=== PATIENT | female | born 1950 | race Caucasian/White ===

== ENCOUNTER 2017-05-02 06:20 | Day surgery (SDC) | payer BC, OTHER ==
[2017-04-29 08:58] VITALS: BMI 23.1
--- NOTE | 2017-05-02 07:15 | HP ---
Admitting History and Physical - Admission History of Present Illness: patient is a 66 y/o female with a past medical history of bipolar disorder, ESRD (HD, Tuesday, , Tuesday), hypothyroidism and hypertension. Patient presents for ECT, she has received 16 ECT treatments in the past at [facility]. Patient was recently discharged from [facility] on after a 2 month hospitalization for depression and renal failure. Patient had a left av fistula placed during hospitalization with emergent dialysis. She reports ongoing feelings of depression. Patient denies any suicidal or homicidal ideation, visual or auditory hallucinations. She reports compliance with prescribed medications. History Source: Patient Limitations to Obtaining History: No Limitations - Past Medical History Cardiovascular: Yes: HTN Renal/: Yes: Renal Failure, Hemodialysis Endocrine: Yes: Hyperthyroidism - Advance Directives Advance Directives: Yes: Health Care Proxy - Smoking History Smoking history: Never smoked Have you smoked in the past 12 months: No - Alcohol/Substance Use Hx Alcohol Use: No History of Substance Use: reports: None - Social History Usual Living Arrangement: Yes: Alone ADL: Independent History of Recent Travel: No Home Medications - Allergies Allergies/Adverse Reactions: Allergies Allergy/AdvReac Type Severity Reaction Status Date / Time No Known Drug Allergies Allergy Verified 04/29/17 08:24 - Home Medications Home Medications: Ambulatory Orders Aripiprazole [Abilify -] 2 mg PO HS 04/29/17 Docusate Sodium [Colace -] 100 mg PO BID 04/29/17 Lamotrigine [Lamictal] 100 mg PO HS 04/29/17 Levothyroxine [Synthroid -] 50 mcg PO DAILY 04/29/17 Lisinopril 10 mg PO DAILY 04/29/17 Metoprolol Tartrate 25 mg PO BID 04/29/17 Sevelamer HCl [Renagel] 400 mg PO TID 04/29/17 Verapamil HCl 120 mg PO Q8H 04/29/17 Family Disease History - Family Disease History Family Disease History: Other: Father (cardiac arrest ) Review of Systems - Review of Systems Constitutional: reports: No Symptoms Eyes: reports: No Symptoms HENT: reports: No Symptoms Neck: reports: No Symptoms Cardiovascular: reports: No Symptoms Respiratory: reports: No Symptoms Gastrointestinal: reports: No Symptoms Genitourinary: reports: No Symptoms Musculoskeletal: reports: No Symptoms Integumentary: reports: No Symptoms Neurological: reports: No Symptoms Endocrine: reports: No Symptoms Hematology/Lymphatic: reports: No Symptoms Psychiatric: reports: Depression Physical Examination Constitutional: Yes: Well Nourished, No Distress, Calm Eyes: Yes: WNL, Conjunctiva Clear, EOM Intact HENT: Yes: WNL, Atraumatic, Normocephalic Neck: Yes: WNL, Supple, Trachea Midline Cardiovascular: Yes: WNL, Regular Rate and Rhythm, S1, S2, Other (right sc shiley, no erythema no induration noted) Respiratory: Yes: WNL, Regular, CTA Bilaterally Gastrointestinal: Yes: WNL, Normal Bowel Sounds, Soft ...Rectal Exam: Yes: Deferred Renal/: Yes: WNL Musculoskeletal: Yes: WNL Extremities: Yes: Other (left av fistula + thrill + bruit) Edema: No Peripheral Pulses WNL: Yes Peripheral Pulses: Left Radial: 4+, Right Radial: 4+, Left Doralis Pedis: 3+, Right Dorsalis Pedis: 3+, Left Femoral: 3+, Right Femoral: 2+ Integumentary: Yes: WNL Neurological: Yes: WNL, Alert, Oriented ...Motor Strength: WNL Psychiatric: Yes: WNL, Alert, Oriented Labs: CBC, BMP 05/02/17 07:00 Imaging - Results EKG: Image Reviewed, Other (nsr no ischemic changes) Problem List - Problems (1) Bipolar 1 disorder Code(s): F31.9 - BIPOLAR DISORDER, UNSPECIFIED (2) ESRD (end stage renal disease) on dialysis Code(s): N18.6 - END STAGE RENAL DISEASE Z99.2 - DEPENDENCE ON RENAL DIALYSIS (3) Hypertension Code(s): I10 - ESSENTIAL (PRIMARY) HYPERTENSION (4) Hypothyroidism Code(s): E03.9 - HYPOTHYROIDISM, UNSPECIFIED Assessment/Plan pt is a 66 y/o female that presents for ect, she has received ect in the past and denies any adverse reaction to anesthesia. pt appears euvolemic on exam, no signs of fluid overload is noted. labs and ekg reviewed pt is low risk for procedure. informed consent, risks/benefits to be obtained by Dr Foreman
[2017-05-02 07:25] LABS: ALBUMIN 3.5 g/dl (3.5-5.0); ALK PHOS 136 U/L (32-92); ANION GAP 9 (8-16); CALCIUM 9.1 mg/dl (8.4-10.2); CO2 23 mmol/L (22-28); CREATININE 6.7 mg/dl (0.6-1.3); GLUCOSE,RANDOM 80 mg/dl (74-106); SGOT/AST 19 U/L (10-42); SGPT/ALT 16 U/L (10-40)
[2017-05-02 07:38] LABS: BILIRUBIN,TOTAL 0.4 mg/dl (0.2-1.0)
[2017-05-02 10:57] VITALS: PULSE 60
[2017-05-02 10:59] VITALS: BP 140/70; TEMP 97.8
== END 2017-05-02 10:40 | disposition home or self-care (01) ==
LOC: FECT 06:20
PROVIDERS: ATTEND Psychiatry & Neurology Psychiatry
PROC: GZB4ZZZ Other Electroconvulsive Therapy (ICD-10-PCS; principal; 2017-05-02 07:15)
DX: F33.2 Major depressive disorder, recurrent severe without psychotic features (principal)
CPT/HCPCS: 36415; 80053; 90870; 94760

== ENCOUNTER 2017-05-11 05:41 | Day surgery (SDC) | payer BC, OTHER ==
[2017-05-04 12:02] VITALS: BMI 23.1
[2017-05-11 06:55] VITALS: TEMP 98
[2017-05-11 09:56] VITALS: BP 166/66; PULSE 61
== END 2017-05-11 09:50 | disposition home or self-care (01) ==
LOC: FECT 05:41
PROVIDERS: ATTEND Psychiatry & Neurology Psychiatry
PROC: GZB4ZZZ Other Electroconvulsive Therapy (ICD-10-PCS; principal; 2017-05-11 07:45)
DX: F33.2 Major depressive disorder, recurrent severe without psychotic features (principal)
CPT/HCPCS: 36415; 84132; 90870; 94760

== ENCOUNTER 2017-05-18 05:42 | Day surgery (SDC) | payer BC, OTHER ==
[2017-05-12 10:03] VITALS: BMI 23.1
[2017-05-18] MEDS ORDERED: ONDANSETRON 4 MG/2 ML VIAL IVPUSH PRN (08:57)
[2017-05-18] MEDS ORDERED: LACTATED RINGERS SOLUTION 1,000 ML IV SCH (09:00)
[2017-05-18 09:34] VITALS: BP 158/54; PULSE 64; TEMP 98.2
== END 2017-05-18 09:36 | disposition home or self-care (01) ==
LOC: FECT 05:42
PROVIDERS: ATTEND Psychiatry & Neurology Psychiatry
PROC: GZB4ZZZ Other Electroconvulsive Therapy (ICD-10-PCS; principal; 2017-05-18 07:45)
DX: F33.2 Major depressive disorder, recurrent severe without psychotic features (principal)
CPT/HCPCS: 36415; 84132; 90870; 94760

== ENCOUNTER 2017-05-25 05:47 | Day surgery (SDC) | payer OTHER ==
[2017-05-25] MEDS ORDERED: ONDANSETRON 4 MG/2 ML VIAL IVPUSH PRN (07:45)
[2017-05-25 10:08] VITALS: PULSE 64
[2017-05-25 10:10] VITALS: BP 134/66; TEMP 98
== END 2017-05-25 10:12 | disposition home or self-care (01) ==
LOC: FECT 05:47
PROVIDERS: ATTEND Psychiatry & Neurology Psychiatry
PROC: GZB4ZZZ Other Electroconvulsive Therapy (ICD-10-PCS; principal; 2017-05-25 08:00)
DX: F33.2 Major depressive disorder, recurrent severe without psychotic features (principal)
CPT/HCPCS: 36415; 84132; 90870; 94760

== ENCOUNTER 2017-06-01 05:36 | Day surgery (SDC) | payer OTHER ==
[2017-05-31 13:58] VITALS: BMI 23.1
--- NOTE | 2017-06-01 07:15 | HP ---
Admitting History and Physical - Admission History of Present Illness: patient is a 66 y/o female with a past medical history of ESRD (tuesday, Tuesday, Tuesday), hypertension, hypothyroidism, and bipolar disorder. Patient presents for ect her last ect was 05/25/17. Patient reports no significant relief of depression since starting ECT. She denies any recent hospitalizations or illnesses. She reports her abilify was increased to 3mg and reports no adverse reaction to medication change. Her last hemodialysis was yesterday with no adverse reaction. She denies any suicidal or homicidal ideation or visual or auditory hallucinations. History Source: Patient Limitations to Obtaining History: No Limitations - Past Medical History Cardiovascular: Yes: HTN Renal/: Yes: Renal Failure, Hemodialysis Endocrine: Yes: Hyperthyroidism - Smoking History Smoking history: Never smoked Have you smoked in the past 12 months: No - Alcohol/Substance Use Hx Alcohol Use: No History of Substance Use: reports: None - Social History Usual Living Arrangement: Yes: Alone ADL: Independent History of Recent Travel: No Home Medications - Allergies Allergies/Adverse Reactions: Allergies Allergy/AdvReac Type Severity Reaction Status Date / Time No Known Drug Allergies Allergy Verified 05/31/17 13:51 - Home Medications Home Medications: Ambulatory Orders Aripiprazole [Abilify -] 3 mg PO HS 04/29/17 Docusate Sodium [Colace -] 100 mg PO BID 04/29/17 Lamotrigine [Lamictal] 100 mg PO HS 04/29/17 Levothyroxine [Synthroid -] 50 mcg PO DAILY 04/29/17 Lisinopril 10 mg PO HS 04/29/17 Metoprolol Tartrate 25 mg PO BID 04/29/17 Sevelamer HCl [Renagel] 400 mg PO TID 04/29/17 Verapamil HCl 120 mg PO Q8H 04/29/17 Family Disease History - Family Disease History Family Disease History: Other: Father (cardiac arrest ) Review of Systems - Review of Systems Constitutional: reports: No Symptoms Eyes: reports: No Symptoms HENT: reports: No Symptoms Neck: reports: No Symptoms Cardiovascular: reports: No Symptoms Respiratory: reports: No Symptoms Gastrointestinal: reports: No Symptoms Genitourinary: reports: No Symptoms Musculoskeletal: reports: No Symptoms Integumentary: reports: No Symptoms Neurological: reports: No Symptoms Endocrine: reports: No Symptoms Hematology/Lymphatic: reports: No Symptoms Psychiatric: reports: Depression Physical Examination Constitutional: Yes: Well Nourished, No Distress Eyes: Yes: WNL, Conjunctiva Clear, EOM Intact HENT: Yes: WNL, Atraumatic, Normocephalic Neck: Yes: WNL, Supple, Trachea Midline Cardiovascular: Yes: WNL, Regular Rate and Rhythm Respiratory: Yes: WNL, Regular, CTA Bilaterally Gastrointestinal: Yes: WNL, Normal Bowel Sounds, Soft ...Rectal Exam: Yes: Deferred Renal/: Yes: WNL Breast(s): Yes: WNL Musculoskeletal: Yes: WNL Extremities: Yes: WNL Edema: No Peripheral Pulses WNL: Yes Integumentary: Yes: WNL Neurological: Yes: WNL, Alert, Oriented ...Motor Strength: WNL Psychiatric: Yes: WNL, Alert, Oriented Labs: Laboratory Tests 05/02/17 06/01/17 07:00 06:45 Sodium 131 L Potassium Pending Chloride 99 Carbon Dioxide 23 Anion Gap 9 BUN 63 H Creatinine 6.7 H Creat Clearance w eGFR 6.18 Random Glucose 80 Calcium 9.1 Total Bilirubin 0.4 AST 19 ALT 16 Alkaline Phosphatase 136 H Total Protein 6.0 L Albumin 3.5 Imaging - Results EKG: Image Reviewed, Other (nsr) Assessment/Plan pt is a 66 y/o female, that presents for ect, she has received ect in the past and denies any adverse reaction to anesthesia labs and ekg reviewed. pt is medically optimized for surgery
[2017-06-01 09:07] VITALS: TEMP 98.2
[2017-06-01] MEDS ORDERED: ONDANSETRON 4 MG/2 ML VIAL IVPUSH PRN (09:20)
[2017-06-01 09:28] VITALS: BP 132/60; PULSE 68
[2017-06-01] MEDS ORDERED: LACTATED RINGERS SOLUTION 1,000 ML IV SCH (09:30)
== END 2017-06-01 10:20 | disposition home or self-care (01) ==
LOC: FECT 05:36
PROVIDERS: ATTEND Psychiatry & Neurology Psychiatry
PROC: GZB4ZZZ Other Electroconvulsive Therapy (ICD-10-PCS; principal; 2017-06-01 08:15)
DX: F33.2 Major depressive disorder, recurrent severe without psychotic features (principal)
CPT/HCPCS: 36415; 84132; 90870; 94760

== ENCOUNTER 2017-06-08 06:42 | Day surgery (SDC) | payer OTHER, MEDICARE ==
[2017-06-03 11:16] VITALS: BMI 23.1
[2017-06-08] MEDS ORDERED: KETAMINE HCL 500 MG/10 ML VIAL ONE (07:53)
[2017-06-08] MEDS ORDERED: SODIUM CHLORIDE 1,000 ML IV SCH (08:30)
[2017-06-08] MEDS ORDERED: ONDANSETRON 4 MG/2 ML VIAL IVPUSH PRN (08:30)
[2017-06-08 10:05] VITALS: BP 142/84; PULSE 68; TEMP 98.2
== END 2017-06-08 10:07 | disposition home or self-care (01) ==
LOC: FECT 06:42
PROVIDERS: ATTEND Psychiatry & Neurology Psychiatry
PROC: GZB4ZZZ Other Electroconvulsive Therapy (ICD-10-PCS; principal; 2017-06-08 07:30)
DX: F33.2 Major depressive disorder, recurrent severe without psychotic features (principal)
CPT/HCPCS: 36415; 84132; 90870; 94760

== ENCOUNTER 2017-06-15 05:39 | Day surgery (SDC) | payer OTHER ==
[2017-06-09 16:56] VITALS: BMI 23.1
[2017-06-15] MEDS ORDERED: KETAMINE HCL 500 MG/10 ML VIAL ONE (08:21)
[2017-06-15 09:26] VITALS: TEMP 97.7
[2017-06-15] MEDS ORDERED: ONDANSETRON 4 MG/2 ML VIAL IVPUSH PRN (09:30)
[2017-06-15] MEDS ORDERED: ACETAMINOPHEN 325 MG TABLET (FP) PO PRN (09:30)
[2017-06-15 11:00] VITALS: BP 130/65; PULSE 66
== END 2017-06-15 11:15 | disposition home or self-care (01) ==
LOC: FECT 05:39
PROVIDERS: ATTEND Psychiatry & Neurology Psychiatry
PROC: GZB4ZZZ Other Electroconvulsive Therapy (ICD-10-PCS; principal; 2017-06-15 07:45)
DX: F33.2 Major depressive disorder, recurrent severe without psychotic features (principal)
CPT/HCPCS: 36415; 84132; 90870; 94760

== ENCOUNTER 2017-06-22 05:43 | Day surgery (SDC) | payer OTHER ==
[2017-06-22] MEDS ORDERED: KETAMINE HCL 500 MG/10 ML VIAL ONE (07:40)
[2017-06-22] MEDS ORDERED: ONDANSETRON 4 MG/2 ML VIAL IVPUSH PRN (07:44)
[2017-06-22] MEDS ORDERED: ACETAMINOPHEN 325 MG TABLET (FP) PO PRN (07:44)
[2017-06-22 11:42] VITALS: TEMP 98.2
[2017-06-22 11:44] VITALS: BP 136/58; PULSE 66
== END 2017-06-22 11:56 | disposition home or self-care (01) ==
LOC: FECT 05:43
PROVIDERS: ATTEND Psychiatry & Neurology Psychiatry
PROC: GZB4ZZZ Other Electroconvulsive Therapy (ICD-10-PCS; principal; 2017-06-22 07:45)
DX: F33.2 Major depressive disorder, recurrent severe without psychotic features (principal)
CPT/HCPCS: 36415; 84132; 90870; 94760

== ENCOUNTER 2017-06-29 05:47 | Day surgery (SDC) | payer OTHER ==
[2017-06-22 15:59] VITALS: BMI 23.1
[2017-06-29] MEDS ORDERED: KETAMINE HCL 500 MG/10 ML VIAL ONE (07:26)
[2017-06-29 08:32] VITALS: TEMP 98
[2017-06-29 08:52] VITALS: BP 146/63; PULSE 62
== END 2017-06-29 09:58 | disposition home or self-care (01) ==
LOC: FECT 05:47
PROVIDERS: ATTEND Psychiatry & Neurology Psychiatry
PROC: GZB4ZZZ Other Electroconvulsive Therapy (ICD-10-PCS; principal; 2017-06-29 07:30)
DX: F33.2 Major depressive disorder, recurrent severe without psychotic features (principal)
CPT/HCPCS: 36415; 84132; 90870; 94760

== ENCOUNTER 2017-07-06 05:48 | Day surgery (SDC) | payer OTHER ==
[2017-07-04 17:31] VITALS: BMI 23.1
--- NOTE | 2017-07-06 07:10 | HP ---
Admitting History and Physical - Admission History of Present Illness: patient is a 66 y/o female, with a past medical history of esrd (hemodialysis , , tuesday), hypertension, hypothyroidism, and bipolar disorder. Patient presents for ect her last ect was 06/29/17. Patient reports some improvement of depressive symptoms since starting ect. She denies any recent illness or hospitalizations. Patient does report her lopressor was decreased to daily. Patient denies any suicidal or homicidal ideation, visual or auditory hallucinations. History Source: Patient Limitations to Obtaining History: No Limitations - Past Medical History Cardiovascular: Yes: HTN Renal/: Yes: Renal Failure, Hemodialysis Endocrine: Yes: Hyperthyroidism - Smoking History Smoking history: Never smoked Have you smoked in the past 12 months: No - Alcohol/Substance Use Hx Alcohol Use: No History of Substance Use: reports: None - Social History Usual Living Arrangement: Yes: Alone ADL: Independent History of Recent Travel: No Home Medications - Allergies Allergies/Adverse Reactions: Allergies Allergy/AdvReac Type Severity Reaction Status Date / Time No Known Drug Allergies Allergy Verified 07/04/17 17:19 - Home Medications Home Medications: Ambulatory Orders Aripiprazole [Abilify -] 5 mg PO HS 04/29/17 Docusate Sodium [Colace -] 100 mg PO BID 04/29/17 Lamotrigine [Lamictal] 100 mg PO HS 04/29/17 Levothyroxine [Synthroid -] 50 mcg PO DAILY 04/29/17 Lisinopril 10 mg PO DAILY 04/29/17 Metoprolol Tartrate 25 mg PO BID 04/29/17 Sevelamer HCl [Renagel] 400 mg PO TID 04/29/17 Verapamil HCl 120 mg PO Q8H 04/29/17 Acetylcysteine [F-Rvakho-v-Cysteine] 600 mg PO HS 06/15/17 Family Disease History - Family Disease History Family Disease History: Other: Father (cardiac arrest ) Review of Systems - Review of Systems Constitutional: reports: No Symptoms Eyes: reports: No Symptoms HENT: reports: No Symptoms Neck: reports: No Symptoms Cardiovascular: reports: No Symptoms Respiratory: reports: No Symptoms Gastrointestinal: reports: No Symptoms Genitourinary: reports: No Symptoms Musculoskeletal: reports: No Symptoms Integumentary: reports: No Symptoms Neurological: reports: No Symptoms Endocrine: reports: No Symptoms Hematology/Lymphatic: reports: No Symptoms Psychiatric: reports: No Symptoms Physical Examination Constitutional: Yes: Well Nourished, No Distress, Calm Eyes: Yes: WNL, Conjunctiva Clear, EOM Intact HENT: Yes: WNL, Atraumatic, Normocephalic Neck: Yes: WNL, Supple, Trachea Midline Cardiovascular: Yes: WNL, Regular Rate and Rhythm, S1, S2, Other (left arm av graft, + thrill, + bruit) Respiratory: Yes: WNL, Regular, CTA Bilaterally Gastrointestinal: Yes: WNL, Normal Bowel Sounds, Soft ...Rectal Exam: Yes: Deferred Renal/: Yes: WNL Musculoskeletal: Yes: WNL Extremities: Yes: WNL Edema: No Peripheral Pulses WNL: Yes Peripheral Pulses: Left Radial: 4+, Right Radial: 4+, Left Doralis Pedis: 3+, Right Dorsalis Pedis: 3+, Left Femoral: 3+, Right Femoral: 3+ Integumentary: Yes: WNL Neurological: Yes: WNL, Alert, Oriented ...Motor Strength: WNL Psychiatric: Yes: WNL, Alert, Oriented Imaging - Results EKG: Image Reviewed (nsr), Other Assessment/Plan pt is a 66 y/o female that presents for ect, labs and ekg reviewed pt is medically optimized for procedure.
[2017-07-06 07:31] VITALS: TEMP 97.6
[2017-07-06] MEDS ORDERED: KETAMINE HCL 500 MG/10 ML VIAL ONE (08:33)
[2017-07-06 10:44] VITALS: BP 139/74; PULSE 64
== END 2017-07-06 10:50 | disposition home or self-care (01) ==
LOC: FECT 05:48
PROVIDERS: ATTEND Psychiatry & Neurology Psychiatry
PROC: GZB4ZZZ Other Electroconvulsive Therapy (ICD-10-PCS; principal; 2017-07-06 08:00)
DX: F33.2 Major depressive disorder, recurrent severe without psychotic features (principal)
CPT/HCPCS: 36415; 84132; 90870; 94760

== ENCOUNTER 2017-07-13 05:39 | Day surgery (SDC) | payer OTHER ==
[2017-07-06 14:42] VITALS: BMI 23.1
[2017-07-13] MEDS ORDERED: KETAMINE HCL 500 MG/10 ML VIAL ONE (07:23)
[2017-07-13 08:29] VITALS: TEMP 97.7
[2017-07-13 09:42] VITALS: BP 144/76; PULSE 79
== END 2017-07-13 09:30 | disposition home or self-care (01) ==
LOC: FECT 05:39
PROVIDERS: ATTEND Psychiatry & Neurology Psychiatry
PROC: GZB4ZZZ Other Electroconvulsive Therapy (ICD-10-PCS; principal; 2017-07-13 07:15)
DX: F33.2 Major depressive disorder, recurrent severe without psychotic features (principal)
CPT/HCPCS: 36415; 84132; 90870; 94760

== ENCOUNTER 2017-07-20 05:42 | Day surgery (SDC) | payer OTHER, MEDICARE ==
[2017-07-20] MEDS ORDERED: ONDANSETRON 4 MG/2 ML VIAL IVPUSH PRN (06:50)
[2017-07-20] MEDS ORDERED: LACTATED RINGERS SOLUTION 1,000 ML IV SCH (07:00)
[2017-07-20 07:05] VITALS: BMI 22.6
[2017-07-20] MEDS ORDERED: KETAMINE HCL 500 MG/10 ML VIAL ONE (07:30)
[2017-07-20] MEDS ORDERED: LIDOCAINE 1% P/F 10 MG/ML VIAL ONE (07:35)
[2017-07-20 09:44] VITALS: TEMP 98
[2017-07-20 10:27] VITALS: BP 120/66; PULSE 82
== END 2017-07-20 10:35 | disposition home or self-care (01) ==
LOC: FECT 05:42
PROVIDERS: ATTEND Psychiatry & Neurology Psychiatry
PROC: GZB4ZZZ Other Electroconvulsive Therapy (ICD-10-PCS; principal; 2017-07-20 07:15)
DX: F33.2 Major depressive disorder, recurrent severe without psychotic features (principal)
CPT/HCPCS: 36415; 84132; 90870; 94760

== ENCOUNTER 2017-07-27 05:46 | Day surgery (SDC) | payer OTHER, MEDICARE ==
[2017-07-25 13:57] VITALS: BMI 23.1
[2017-07-27] MEDS ORDERED: KETAMINE HCL 500 MG/10 ML VIAL ONE (07:40)
[2017-07-27 08:57] VITALS: TEMP 98.4
[2017-07-27 10:34] VITALS: BP 141/78; PULSE 76
== END 2017-07-27 10:05 | disposition home or self-care (01) ==
LOC: FASU 05:46
PROVIDERS: ATTEND Psychiatry & Neurology Psychiatry
PROC: GZB4ZZZ Other Electroconvulsive Therapy (ICD-10-PCS; principal; 2017-07-27 07:15)
DX: F33.2 Major depressive disorder, recurrent severe without psychotic features (principal)
CPT/HCPCS: 36415; 84132; 90870; 94760

== ENCOUNTER 2017-08-03 05:41 | Day surgery (SDC) | payer OTHER, MEDICARE ==
[2017-08-01 13:09] VITALS: BMI 23.1
[2017-08-03] MEDS ORDERED: KETAMINE HCL 500 MG/10 ML VIAL ONE (07:33)
[2017-08-03] MEDS ORDERED: SODIUM CHLORIDE 1,000 ML IV SCH (07:45)
[2017-08-03 09:04] VITALS: TEMP 97.6
[2017-08-03 09:28] VITALS: BP 140/60; PULSE 66
== END 2017-08-03 10:00 | disposition home or self-care (01) ==
LOC: FECT 05:41
PROVIDERS: ATTEND Psychiatry & Neurology Psychiatry
PROC: GZB4ZZZ Other Electroconvulsive Therapy (ICD-10-PCS; principal; 2017-08-03 07:15)
DX: F33.2 Major depressive disorder, recurrent severe without psychotic features (principal)
CPT/HCPCS: 36415; 84132; 90870; 94760

== ENCOUNTER 2017-08-10 05:40 | Day surgery (SDC) | payer OTHER, MEDICARE ==
[2017-08-04 07:16] VITALS: BMI 23.1
--- NOTE | 2017-08-10 07:03 | HP ---
Admitting History and Physical - Admission History of Present Illness: Patient is a 67 y/o female with a past medical history of ESRD (hemodialysis Tuesday, , Tuesday), hypothyroidism, hypertension, and bipolar disorder. Patient presents for ect, her last ect was 08/03/17. She denies any recent illnesses or hospitalizations or medication changes. She reports feeling depressed and reports no significant improvement since starting ECT. She denies any suicidal or homicidal ideation, visual or auditory hallucinations. History Source: Patient Limitations to Obtaining History: No Limitations - Past Medical History Cardiovascular: Yes: HTN Renal/: Yes: Renal Failure, Hemodialysis Endocrine: Yes: Hyperthyroidism - Smoking History Smoking history: Never smoked Have you smoked in the past 12 months: No - Alcohol/Substance Use Hx Alcohol Use: No History of Substance Use: reports: None - Social History Usual Living Arrangement: Yes: Alone ADL: Independent History of Recent Travel: No Home Medications - Allergies Allergies/Adverse Reactions: Allergies Allergy/AdvReac Type Severity Reaction Status Date / Time No Known Drug Allergies Allergy Verified 07/04/17 17:19 - Home Medications Home Medications: Ambulatory Orders Aripiprazole [Abilify -] 5 mg PO HS 04/29/17 Docusate Sodium [Colace -] 100 mg PO BID 04/29/17 Lamotrigine [Lamictal] 100 mg PO HS 04/29/17 Levothyroxine [Synthroid -] 50 mcg PO DAILY 04/29/17 Lisinopril 10 mg PO DAILY 04/29/17 Metoprolol Tartrate 25 mg PO HS 04/29/17 Sevelamer HCl [Renagel] 400 mg PO TID 04/29/17 Verapamil HCl 120 mg PO Q8H 04/29/17 Acetylcysteine [L-Lrllzb-w-Cysteine] 600 mg PO HS 06/15/17 Family Disease History - Family Disease History Family Disease History: Other: Father (cardiac arrest ) Review of Systems - Review of Systems Constitutional: reports: No Symptoms Eyes: reports: No Symptoms HENT: reports: No Symptoms Neck: reports: No Symptoms Cardiovascular: reports: No Symptoms Respiratory: reports: No Symptoms Gastrointestinal: reports: No Symptoms Genitourinary: reports: No Symptoms Musculoskeletal: reports: No Symptoms Integumentary: reports: No Symptoms Neurological: reports: No Symptoms Endocrine: reports: No Symptoms Hematology/Lymphatic: reports: No Symptoms Psychiatric: reports: Depression Physical Examination Vital Signs: Vital Signs Temperature 98.3 F 08/10/17 06:42 Pulse Rate 68 08/10/17 06:42 Respiratory Rate 18 08/10/17 06:42 Blood Pressure 124/70 08/10/17 06:42 O2 Sat by Pulse Oximetry (%) 98 08/10/17 06:42 Constitutional: Yes: Well Nourished, No Distress, Calm Eyes: Yes: WNL, Conjunctiva Clear, EOM Intact HENT: Yes: WNL, Atraumatic, Normocephalic Neck: Yes: WNL, Supple, Trachea Midline Cardiovascular: Yes: WNL, Regular Rate and Rhythm, S1, S2, Other (left arm av graft, + thrill, + bruit) Respiratory: Yes: WNL, Regular, CTA Bilaterally Gastrointestinal: Yes: WNL, Normal Bowel Sounds, Soft ...Rectal Exam: Yes: Deferred Renal/: Yes: WNL Breast(s): Yes: WNL Musculoskeletal: Yes: WNL Extremities: Yes: WNL Edema: No Peripheral Pulses WNL: Yes Peripheral Pulses: Left Radial: 4+, Right Radial: 4+, Left Doralis Pedis: 3+, Right Dorsalis Pedis: 3+, Left Femoral: 3+, Right Femoral: 3+ Integumentary: Yes: WNL Neurological: Yes: WNL, Alert, Oriented ...Motor Strength: WNL Psychiatric: Yes: WNL, Alert, Oriented Labs: CMP Potassium 4.8 mmol/L (3.5-5.1) 08/10/17 06:00 Imaging - Results EKG: Image Reviewed, Other (nsr no ischemic changes) Assessment/Plan patient is a 67 y/o female that presents for ect, labs and ekg reviewed, patient is medically optimized for procedure informed consent, risks/benefits to be obtained by Dr Foreman.
[2017-08-10] MEDS ORDERED: KETAMINE HCL 500 MG/10 ML VIAL ONE (07:40)
[2017-08-10] MEDS ORDERED: LACTATED RINGERS SOLUTION 1,000 ML IV SCH (08:30)
[2017-08-10 09:17] VITALS: BP 144/63; PULSE 66; TEMP 97.6
== END 2017-08-10 09:45 | disposition home or self-care (01) ==
LOC: FECT 05:40
PROVIDERS: ATTEND Psychiatry & Neurology Psychiatry
PROC: GZB4ZZZ Other Electroconvulsive Therapy (ICD-10-PCS; principal; 2017-08-10 07:15)
DX: F33.2 Major depressive disorder, recurrent severe without psychotic features (principal)
CPT/HCPCS: 36415; 84132; 90870; 94760

== ENCOUNTER 2017-08-17 05:39 | Day surgery (SDC) | payer OTHER, MEDICARE ==
[2017-08-15 08:00] VITALS: BMI 23.1
[~2017-08-17 05:39] MED LIST: LACTATED RINGERS SOLUTION 1,000 ML IV SCH
[2017-08-17] MEDS ORDERED: KETAMINE HCL 500 MG/10 ML VIAL ONE (07:11)
[2017-08-17 08:24] VITALS: TEMP 98.2
[2017-08-17 09:08] VITALS: BP 138/64; PULSE 66
== END 2017-08-17 09:30 | disposition home or self-care (01) ==
LOC: FECT 05:39
PROVIDERS: ATTEND Psychiatry & Neurology Psychiatry
PROC: GZB4ZZZ Other Electroconvulsive Therapy (ICD-10-PCS; principal; 2017-08-17 07:00)
DX: F33.2 Major depressive disorder, recurrent severe without psychotic features (principal)
CPT/HCPCS: 36415; 84132; 90870; 94760

== ENCOUNTER 2017-08-31 05:39 | Day surgery (SDC) | payer OTHER, MEDICARE ==
[2017-08-31] MEDS ORDERED: LACTATED RINGERS SOLUTION 1,000 ML IV SCH (06:45)
[2017-08-31 06:55] VITALS: BMI 22.8
[2017-08-31] MEDS ORDERED: KETAMINE HCL 500 MG/10 ML VIAL ONE (07:14)
[2017-08-31 08:36] VITALS: TEMP 97.9
[2017-08-31 09:05] VITALS: BP 134/79; PULSE 74
== END 2017-08-31 09:30 | disposition home or self-care (01) ==
LOC: FECT 05:39
PROVIDERS: ATTEND Psychiatry & Neurology Psychiatry
PROC: GZB4ZZZ Other Electroconvulsive Therapy (ICD-10-PCS; principal; 2017-08-31 07:00)
DX: F33.2 Major depressive disorder, recurrent severe without psychotic features (principal)
CPT/HCPCS: 36415; 84132; 90870; 94760

== ENCOUNTER 2017-09-07 05:47 | Day surgery (SDC) | payer OTHER, MEDICARE ==
[2017-09-07 06:43] VITALS: BMI 22.7
[2017-09-07 09:54] VITALS: TEMP 98.3
[2017-09-07 09:59] VITALS: BP 142/72; PULSE 78
== END 2017-09-07 09:30 | disposition home or self-care (01) ==
LOC: FECT 05:47
PROVIDERS: ATTEND Psychiatry & Neurology Psychiatry
PROC: GZB4ZZZ Other Electroconvulsive Therapy (ICD-10-PCS; principal; 2017-09-07 08:15)
DX: F33.2 Major depressive disorder, recurrent severe without psychotic features (principal)
CPT/HCPCS: 36415; 84132; 90870; 94760

== ENCOUNTER 2017-09-14 05:42 | Day surgery (SDC) | payer OTHER, MEDICARE ==
--- NOTE | 2017-09-14 06:48 | HP ---
Admitting History and Physical - Admission History of Present Illness: patient is a 67 y/o female with a past medical history of ESRD (hemodialysis Tuesday, , Tuesday), hypothyroidism, hypertension and bipolar disorder. patient presents for ect, her last ect was 08/31/17. Patient reports feeling well, she reports an improvement in depressive symptoms since starting ect. She denies any changes in medications, she denies any recent illnesses or hospitalizations. patient denies any suicidal or homicidal ideation, visual or auditory hallucinations. History Source: Patient - Past Medical History Cardiovascular: Yes: HTN Renal/: Yes: Renal Failure, Hemodialysis Endocrine: Yes: Hyperthyroidism - Smoking History Smoking history: Never smoked Have you smoked in the past 12 months: No - Alcohol/Substance Use Hx Alcohol Use: No History of Substance Use: reports: None - Social History Usual Living Arrangement: Yes: Alone ADL: Independent History of Recent Travel: No Home Medications - Allergies Allergies/Adverse Reactions: Allergies Allergy/AdvReac Type Severity Reaction Status Date / Time No Known Drug Allergies Allergy Verified 07/04/17 17:19 - Home Medications Home Medications: Ambulatory Orders Aripiprazole [Abilify -] 5 mg PO HS 04/29/17 Docusate Sodium [Colace -] 100 mg PO BID 04/29/17 Lamotrigine [Lamictal] 100 mg PO HS 04/29/17 Levothyroxine [Synthroid -] 50 mcg PO DAILY 04/29/17 Lisinopril 10 mg PO DAILY 04/29/17 Metoprolol Tartrate 25 mg PO HS 04/29/17 Sevelamer HCl [Renagel] 400 mg PO TID 04/29/17 Verapamil HCl 120 mg PO Q8H 04/29/17 Acetylcysteine [X-Zlsvvp-j-Cysteine] 600 mg PO HS 06/15/17 Venlafaxine HCl ER [Effexor Xr -] 150 mg PO DAILY 08/17/17 Family Disease History - Family Disease History Family Disease History: Other: Father (cardiac arrest ) Review of Systems - Review of Systems Constitutional: reports: No Symptoms Eyes: reports: No Symptoms HENT: reports: No Symptoms Neck: reports: No Symptoms Cardiovascular: reports: No Symptoms Respiratory: reports: No Symptoms Gastrointestinal: reports: No Symptoms Genitourinary: reports: No Symptoms Musculoskeletal: reports: No Symptoms Integumentary: reports: No Symptoms Neurological: reports: No Symptoms Endocrine: reports: No Symptoms Hematology/Lymphatic: reports: No Symptoms Psychiatric: reports: No Symptoms Physical Examination Constitutional: Yes: Well Nourished, No Distress Eyes: Yes: WNL, Conjunctiva Clear, EOM Intact HENT: Yes: WNL, Atraumatic, Normocephalic Neck: Yes: WNL, Supple, Trachea Midline Cardiovascular: Yes: WNL, Regular Rate and Rhythm, S1, S2, Other (left upper extremity av graft +thrill, + bruit) Respiratory: Yes: WNL, Regular, CTA Bilaterally Gastrointestinal: Yes: WNL, Normal Bowel Sounds, Soft ...Rectal Exam: Yes: Deferred Renal/: Yes: WNL Musculoskeletal: Yes: WNL Extremities: Yes: WNL Edema: No Peripheral Pulses WNL: Yes Peripheral Pulses: Left Radial: 4+, Right Radial: 4+, Left Doralis Pedis: 3+, Right Dorsalis Pedis: 3+, Left Femoral: 3+, Right Femoral: 3+ Integumentary: Yes: WNL Neurological: Yes: WNL, Alert, Oriented ...Motor Strength: WNL Psychiatric: Yes: WNL, Alert, Oriented Labs: CBC WBC 4.8 K/mm3 (4.0-10.8) 09/14/17 06:45 RBC 3.91 M/mm3 (3.60-5.2) 09/14/17 06:45 Hgb 12.3 GM/dl (10.7-15.3) 09/14/17 06:45 Hct 37.5 % (32.4-45.2) 09/14/17 06:45 MCV 95.8 fl (80-96) 09/14/17 06:45 MCH 31.3 pg (25.7-33.7) 09/14/17 06:45 MCHC 32.7 g/dl (32.0-36.0) 09/14/17 06:45 RDW 19.5 % (11.6-15.6) H 09/14/17 06:45 Plt Count 218 K/MM3 (134-434) 09/14/17 06:45 MPV 8.2 fl (7.5-11.1) 09/14/17 06:45 Neutrophils % 64.8 % (42.8-82.8) 09/14/17 06:45 Lymphocytes % 22.6 % (8-40) 09/14/17 06:45 Monocytes % 10.8 % (3.8-10.2) H 09/14/17 06:45 Eosinophils % 1.0 % (0-4.5) 09/14/17 06:45 Basophils % 0.8 % (0-2.0) 09/14/17 06:45 Imaging - Results EKG: Image Reviewed, Other (ekg nsr) Assessment/Plan patient is a 67 y/o female that presents for ect, labs and ekg reviewed patient is medically optimized for procedure
[2017-09-14 07:07] LABS: BASOPHIL 0.8 % (0-2.0); MCH 31.3 pg (25.7-33.7); MCHC 32.7 g/dl (32.0-36.0); MEAN CELL VOLUME 95.8 fl (80-96); MEAN PLT VOLUME 8.2 fl (7.5-11.1); NEUTROPHILS 64.8 % (42.8-82.8); PLATELET COUNT 218 K/MM3 (134-434); RDW 19.5 % (11.6-15.6); WHITE BLOOD COUNT 4.8 K/mm3 (4.0-10.8)
[2017-09-14 07:21] VITALS: BMI 23.2
[2017-09-14 07:35] LABS: ALBUMIN 3.4 g/dl (3.5-5.0); ALK PHOS 164 U/L (32-92); BILIRUBIN,TOTAL 0.6 mg/dl (0.2-1.0); CALCIUM 9.1 mg/dl (8.4-10.2); CREATININE 5.4 mg/dl (0.6-1.3); GLUCOSE,RANDOM 85 mg/dl (74-106); SGOT/AST 17 U/L (10-42); SGPT/ALT 15 U/L (10-40)
[2017-09-14] MEDS ORDERED: KETAMINE HCL 500 MG/10 ML VIAL ONE (08:05)
[2017-09-14 08:11] VITALS: TEMP 98.2
[2017-09-14 08:26] LABS: ANION GAP 10 (8-16); CO2 23 mmol/L (22-28)
--- NOTE | 2017-09-14 14:04 | EKG ---
Test Reason : Blood Pressure : / mmHG Vent. Rate : 069 BPM Atrial Rate : 069 BPM P-R Int : 174 ms QRS Dur : 092 ms QT Int : 432 ms P-R-T Axes : 018 011 041 degrees QTc Int : 462 ms NORMAL SINUS RHYTHM RSR' OR QR PATTERN IN V1 SUGGESTS RIGHT VENTRICULAR CONDUCTION DELAY BORDERLINE ECG NO PREVIOUS ECGS AVAILABLE Confirmed by IVETTE BANG MD ([id number]) on 09/14/2017 2:04:12 PM Referred By: Axel Foreman Confirmed By:IVETTE BANG MD
[2017-09-14 16:29] LABS: ANISOCYTOSIS 2+; HYPOCHROMIA 1+; PLATELET COMMENTS ADEQUATE
[2017-09-15 09:09] VITALS: BP 145/75; PULSE 72
== END 2017-09-14 10:15 | disposition home or self-care (01) ==
LOC: FECT 05:42
PROVIDERS: ATTEND Psychiatry & Neurology Psychiatry
PROC: GZB4ZZZ Other Electroconvulsive Therapy (ICD-10-PCS; principal; 2017-09-14 07:30)
DX: F33.2 Major depressive disorder, recurrent severe without psychotic features (principal)
CPT/HCPCS: 36415; 80053; 85025; 90870; 93005; 94760

== ENCOUNTER 2017-09-28 05:43 | Day surgery (SDC) | payer OTHER, MEDICARE ==
[2017-09-23 12:38] VITALS: BMI 23.2
[2017-09-28] MEDS ORDERED: KETAMINE HCL 500 MG/10 ML VIAL ONE (07:10)
[2017-09-28 09:18] VITALS: TEMP 97.3
[2017-09-28 09:43] VITALS: BP 145/71; PULSE 74
== END 2017-09-28 09:50 | disposition home or self-care (01) ==
LOC: FECT 05:43
PROVIDERS: ATTEND Psychiatry & Neurology Psychiatry
PROC: GZB4ZZZ Other Electroconvulsive Therapy (ICD-10-PCS; principal; 2017-09-28 07:00)
DX: F33.2 Major depressive disorder, recurrent severe without psychotic features (principal)
CPT/HCPCS: 36415; 84132; 90870; 94760

== ENCOUNTER 2017-10-12 05:43 | Day surgery (SDC) | payer OTHER, MEDICARE ==
[2017-10-12 06:48] VITALS: BMI 23.2
[2017-10-12] MEDS ORDERED: KETAMINE HCL 500 MG/10 ML VIAL ONE (07:22)
[2017-10-12] MEDS ORDERED: ACETAMINOPHEN INJECTION 100 ML IVPB ONE (07:47)
[2017-10-12 09:05] VITALS: TEMP 98
[2017-10-12 09:10] VITALS: BP 158/78; PULSE 62
== END 2017-10-12 09:40 | disposition home or self-care (01) ==
LOC: FECT 05:43
PROVIDERS: ATTEND Psychiatry & Neurology Psychiatry
PROC: GZB4ZZZ Other Electroconvulsive Therapy (ICD-10-PCS; principal; 2017-10-12 07:45)
DX: F33.2 Major depressive disorder, recurrent severe without psychotic features (principal)
CPT/HCPCS: 36415; 84132; 90870; 94760

== ENCOUNTER 2017-10-26 05:45 | Day surgery (SDC) | payer OTHER, MEDICARE ==
[2017-10-26 06:48] VITALS: BMI 22.8
--- NOTE | 2017-10-26 07:03 | HP ---
Admitting History and Physical - Admission History of Present Illness: Patient is a 67 y/o female with a past medical history of ESRD (hemodialyis Tuesday, , Tuesday), hypothyroidism, hypertension and bipolar disorder. Patient presents for ect, her last ect was 10/12/17. patient reports feeling well, she denies any recent illnesses or hospitalizations. Patient reports her effexor was increased to 225mg daily. Patient denies any suicidal or homicidal ideation, visual or auditory hallucinations. History Source: Patient Limitations to Obtaining History: No Limitations - Past Medical History Cardiovascular: Yes: HTN Renal/: Yes: Renal Failure, Hemodialysis Endocrine: Yes: Hyperthyroidism - Smoking History Smoking history: Never smoked Have you smoked in the past 12 months: No - Alcohol/Substance Use Hx Alcohol Use: No History of Substance Use: reports: None - Social History Usual Living Arrangement: Yes: Alone ADL: Independent History of Recent Travel: No Home Medications - Allergies Allergies/Adverse Reactions: Allergies Allergy/AdvReac Type Severity Reaction Status Date / Time No Known Drug Allergies Allergy Verified 07/04/17 17:19 - Home Medications Home Medications: Ambulatory Orders Aripiprazole [Abilify -] 5 mg PO HS 04/29/17 Docusate Sodium [Colace -] 100 mg PO BID 04/29/17 Lamotrigine [Lamictal] 100 mg PO HS 04/29/17 Levothyroxine [Synthroid -] 50 mcg PO DAILY 04/29/17 Lisinopril 10 mg PO DAILY 04/29/17 Metoprolol Tartrate 25 mg PO HS 04/29/17 Sevelamer HCl [Renagel] 400 mg PO TID 04/29/17 Verapamil HCl 120 mg PO Q8H 04/29/17 Acetylcysteine [P-Aturdf-q-Cysteine] 600 mg PO HS 06/15/17 Venlafaxine HCl ER [Effexor Xr -] 225 mg PO DAILY 08/17/17 Family Disease History - Family Disease History Family Disease History: Other: Father (cardiac arrest ) Review of Systems - Review of Systems Constitutional: reports: No Symptoms Eyes: reports: No Symptoms HENT: reports: No Symptoms Neck: reports: No Symptoms Cardiovascular: reports: No Symptoms Respiratory: reports: No Symptoms Gastrointestinal: reports: No Symptoms Genitourinary: reports: No Symptoms Musculoskeletal: reports: No Symptoms Integumentary: reports: No Symptoms Neurological: reports: No Symptoms Endocrine: reports: No Symptoms Hematology/Lymphatic: reports: No Symptoms Psychiatric: reports: No Symptoms Physical Examination Vital Signs: Vital Signs Temperature 97.6 F 10/26/17 06:43 Pulse Rate 66 10/26/17 06:43 Respiratory Rate 18 10/26/17 06:43 Blood Pressure 134/68 10/26/17 06:43 O2 Sat by Pulse Oximetry (%) 100 10/26/17 06:43 Constitutional: Yes: Well Nourished, No Distress, Calm Eyes: Yes: WNL, Conjunctiva Clear, EOM Intact HENT: Yes: WNL, Atraumatic, Normocephalic Neck: Yes: WNL, Supple, Trachea Midline Cardiovascular: Yes: WNL, Regular Rate and Rhythm, S1, S2, Other (right arm AV graft + thrill + bruit) Respiratory: Yes: WNL, Regular, CTA Bilaterally Gastrointestinal: Yes: WNL, Normal Bowel Sounds, Soft ...Rectal Exam: Yes: Deferred Renal/: Yes: WNL Breast(s): Yes: WNL Musculoskeletal: Yes: WNL Extremities: Yes: WNL Edema: No Peripheral Pulses WNL: Yes Peripheral Pulses: Left Radial: 4+, Right Radial: 4+, Left Doralis Pedis: 3+, Right Dorsalis Pedis: 3+, Left Femoral: 3+, Right Femoral: 3+ Neurological: Yes: WNL, Alert, Oriented ...Motor Strength: WNL Psychiatric: Yes: WNL, Alert, Oriented Imaging - Results EKG: Image Reviewed, Other (nsr) Assessment/Plan patient is a 67 y/o female that presents for ect, labs and ekg reviewed patient is medically optimized for procedure informed consent, risks/benefits to be obtained by Dr Foreman
[2017-10-26] MEDS ORDERED: ONDANSETRON 4 MG/2 ML VIAL IVPUSH PRN (07:38)
[2017-10-26] MEDS ORDERED: oxyCODONE HCL 5 MG TABLET PO PRN (07:38)
[2017-10-26] MEDS ORDERED: LACTATED RINGERS SOLUTION 1,000 ML IV SCH (07:45)
[2017-10-26] MEDS ORDERED: KETAMINE HCL 500 MG/10 ML VIAL ONE (07:53)
[2017-10-26 08:53] VITALS: PULSE 76; TEMP 97.8
[2017-10-26 09:46] VITALS: BP 130/60
== END 2017-10-26 10:16 | disposition home or self-care (01) ==
LOC: FECT 05:45
PROVIDERS: ATTEND Psychiatry & Neurology Psychiatry
PROC: GZB4ZZZ Other Electroconvulsive Therapy (ICD-10-PCS; principal; 2017-10-26 07:45)
DX: F33.2 Major depressive disorder, recurrent severe without psychotic features (principal)
CPT/HCPCS: 36415; 84132; 90870; 94760

== ENCOUNTER 2017-11-09 05:39 | Day surgery (SDC) | payer OTHER, MEDICARE ==
[2017-11-09 07:23] VITALS: BMI 23.3
[2017-11-09] MEDS ORDERED: KETAMINE HCL 500 MG/10 ML VIAL ONE (08:19)
[2017-11-09 09:50] VITALS: TEMP 98.2
[2017-11-09 11:22] VITALS: BP 150/72; PULSE 72
== END 2017-11-09 10:40 | disposition home or self-care (01) ==
LOC: FECT 05:39
PROVIDERS: ATTEND Psychiatry & Neurology Psychiatry
PROC: GZB4ZZZ Other Electroconvulsive Therapy (ICD-10-PCS; principal; 2017-11-09 07:15)
DX: F33.2 Major depressive disorder, recurrent severe without psychotic features (principal)
CPT/HCPCS: 36415; 84132; 90870; 94760

== ENCOUNTER 2017-11-25 05:46 | Day surgery (SDC) | payer OTHER, MEDICARE ==
[2017-11-25 07:24] VITALS: TEMP 97.8; BMI 23.2
--- NOTE | 2017-11-25 08:04 | HP ---
Admitting History and Physical - Admission History of Present Illness: patient is a 67 y/o female with a past medical history of ESRD (HD Tuesday, , and tuesday), hyypothyroidism, hypertension, and bipolar disorder. Patient presents for ect, her last ect was 11/10/17. Patient reports feeling well and reports an improvement in mood since starting ect. She denies any recent illnesses or hospitalizations. She denies any changes in medications. Patient denies any suicidal or homicidal ideation, visual or auditory hallucinations. History Source: Patient Limitations to Obtaining History: No Limitations - Past Medical History Cardiovascular: Yes: HTN Renal/: Yes: Renal Failure, Hemodialysis Endocrine: Yes: Hyperthyroidism - Smoking History Smoking history: Never smoked Have you smoked in the past 12 months: No - Alcohol/Substance Use Hx Alcohol Use: No History of Substance Use: reports: None - Social History Usual Living Arrangement: Yes: Alone ADL: Independent History of Recent Travel: No Home Medications - Allergies Allergies/Adverse Reactions: Allergies Allergy/AdvReac Type Severity Reaction Status Date / Time No Known Drug Allergies Allergy Verified 11/15/17 16:59 - Home Medications Home Medications: Ambulatory Orders Aripiprazole [Abilify -] 5 mg PO HS 04/29/17 Docusate Sodium [Colace -] 100 mg PO BID 04/29/17 Lamotrigine [Lamictal] 100 mg PO HS 04/29/17 Levothyroxine [Synthroid -] 50 mcg PO DAILY 04/29/17 Lisinopril 10 mg PO DAILY 04/29/17 Metoprolol Tartrate 25 mg PO HS 04/29/17 Sevelamer HCl [Renagel] 400 mg PO TID 04/29/17 Verapamil HCl 120 mg PO Q8H 04/29/17 Acetylcysteine [W-Ofdqfo-p-Cysteine] 600 mg PO HS 06/15/17 Venlafaxine HCl ER [Effexor Xr -] 300 mg PO DAILY 08/17/17 Family Disease History - Family Disease History Family Disease History: Other: Father (cardiac arrest ) Review of Systems - Review of Systems Constitutional: reports: No Symptoms Eyes: reports: No Symptoms HENT: reports: No Symptoms Neck: reports: No Symptoms Cardiovascular: reports: No Symptoms Respiratory: reports: No Symptoms Gastrointestinal: reports: No Symptoms Genitourinary: reports: No Symptoms Musculoskeletal: reports: No Symptoms Integumentary: reports: No Symptoms Neurological: reports: No Symptoms Endocrine: reports: No Symptoms Hematology/Lymphatic: reports: No Symptoms Psychiatric: reports: No Symptoms Physical Examination Vital Signs: Vital Signs Temperature 97.8 F 11/25/17 07:21 Pulse Rate 64 11/25/17 07:21 Respiratory Rate 18 11/25/17 07:21 Blood Pressure 138/65 11/25/17 07:21 O2 Sat by Pulse Oximetry (%) 97 11/25/17 07:21 Constitutional: Yes: Well Nourished, No Distress, Calm Eyes: Yes: WNL, Conjunctiva Clear, EOM Intact HENT: Yes: WNL, Atraumatic, Normocephalic Neck: Yes: WNL, Supple, Trachea Midline Cardiovascular: Yes: WNL, Regular Rate and Rhythm, S1, S2, Other (left arm av graft, + thrill, + bruit) Respiratory: Yes: WNL, Regular, CTA Bilaterally Gastrointestinal: Yes: WNL, Normal Bowel Sounds, Soft ...Rectal Exam: Yes: Deferred Renal/: Yes: WNL Breast(s): Yes: WNL Musculoskeletal: Yes: WNL Extremities: Yes: WNL Edema: No Peripheral Pulses WNL: Yes Peripheral Pulses: Left Radial: 4+, Right Radial: 4+, Left Doralis Pedis: 3+, Right Dorsalis Pedis: 3+, Left Femoral: 3+, Right Femoral: 3+ Integumentary: Yes: WNL Neurological: Yes: WNL, Alert, Oriented ...Motor Strength: WNL Labs: CBC, BMP 11/25/17 07:00 Imaging - Results EKG: Image Reviewed, Other (nsr) Assessment/Plan patient is a 67 y/o female that presents for ect, labs and ekg reviewed, patient medically optimized for procedure. informed consent, risks/benefits to be obtained by Dr Foreman
[2017-11-25] MEDS ORDERED: KETAMINE HCL 500 MG/10 ML VIAL ONE (08:27)
[2017-11-25 10:16] VITALS: BP 132/62; PULSE 66
== END 2017-11-25 10:19 | disposition home or self-care (01) ==
LOC: FECT 05:46
PROVIDERS: ATTEND Psychiatry & Neurology Psychiatry
PROC: GZB4ZZZ Other Electroconvulsive Therapy (ICD-10-PCS; principal; 2017-11-25 08:30)
DX: F33.2 Major depressive disorder, recurrent severe without psychotic features (principal)
CPT/HCPCS: 36415; 84132; 90870; 94760

== ENCOUNTER 2018-01-10 05:40 | Day surgery (SDC) | payer OTHER, MEDICARE ==
--- NOTE | 2018-01-10 07:13 | HP ---
Admitting History and Physical - Admission History of Present Illness: Patient is a 67 y/o female with a past medical history of ESRD (HD Tuesday, and Tuesday), bipolar disorder, hypertension, and hypothyroidism. Patient presents for ect, her last ect was 01/05/18. Patient reports a significant improvement in depressive symptoms since starting ect. She denies any changes in medications. Patient denies any recent illnesses or hospitalizations. patient denies any suicidal or homicidal ideation, visual or auditory hallucinations. History Source: Patient Limitations to Obtaining History: No Limitations - Past Medical History Cardiovascular: Yes: HTN Renal/: Yes: Renal Failure, Hemodialysis Endocrine: Yes: Hyperthyroidism - Past Surgical History Additional Past Surgical History: left av graft - Smoking History Smoking history: Never smoked Have you smoked in the past 12 months: No - Alcohol/Substance Use Hx Alcohol Use: No History of Substance Use: reports: None - Social History Usual Living Arrangement: Yes: Alone ADL: Independent History of Recent Travel: No Home Medications - Allergies Allergies/Adverse Reactions: Allergies Allergy/AdvReac Type Severity Reaction Status Date / Time No Known Drug Allergies Allergy Verified 11/15/17 16:59 - Home Medications Home Medications: Ambulatory Orders Aripiprazole [Abilify -] 5 mg PO HS 04/29/17 Docusate Sodium [Colace -] 100 mg PO BID 04/29/17 Lamotrigine [Lamictal] 100 mg PO HS 04/29/17 Levothyroxine [Synthroid -] 50 mcg PO DAILY 04/29/17 Lisinopril 10 mg PO DAILY 04/29/17 Metoprolol Tartrate 25 mg PO HS 04/29/17 Sevelamer HCl [Renagel] 400 mg PO TID 04/29/17 Verapamil HCl 120 mg PO Q8H 04/29/17 Acetylcysteine [G-Nwoyty-q-Cysteine] 600 mg PO HS 06/15/17 Venlafaxine HCl ER [Effexor Xr -] 375 mg PO DAILY 08/17/17 Family Disease History - Family Disease History Family Disease History: Other: Father (cardiac arrest ) Review of Systems - Review of Systems Constitutional: reports: No Symptoms Eyes: reports: No Symptoms HENT: reports: No Symptoms Neck: reports: No Symptoms Cardiovascular: reports: No Symptoms Respiratory: reports: No Symptoms Gastrointestinal: reports: No Symptoms Genitourinary: reports: No Symptoms Musculoskeletal: reports: No Symptoms Integumentary: reports: No Symptoms Neurological: reports: No Symptoms Endocrine: reports: No Symptoms Hematology/Lymphatic: reports: No Symptoms Psychiatric: reports: No Symptoms Physical Examination Constitutional: Yes: Well Nourished, No Distress, Calm Eyes: Yes: WNL, Conjunctiva Clear, EOM Intact HENT: Yes: WNL, Atraumatic, Normocephalic Neck: Yes: WNL, Supple, Trachea Midline Cardiovascular: Yes: WNL, Regular Rate and Rhythm, S1, S2, Other (left arm av graft + thrill + bruit) Respiratory: Yes: WNL, Regular, CTA Bilaterally Gastrointestinal: Yes: WNL, Normal Bowel Sounds, Soft ...Rectal Exam: Yes: Deferred Renal/: Yes: WNL Breast(s): Yes: WNL Musculoskeletal: Yes: WNL Extremities: Yes: WNL Edema: No Peripheral Pulses WNL: Yes Integumentary: Yes: WNL Neurological: Yes: WNL, Alert, Oriented ...Motor Strength: WNL Psychiatric: Yes: WNL, Alert, Oriented Imaging - Results EKG: Image Reviewed, Other (nsr normal axis) Assessment/Plan patient is a 67 y/o female that presents for ect, labs and ekg reviewed
[2018-01-10 07:21] VITALS: TEMP 98; BMI 23.6
[2018-01-10] MEDS ORDERED: KETAMINE HCL 500 MG/10 ML VIAL ONE (07:58)
[2018-01-10] MEDS ORDERED: PROMETHAZINE HCL 25 MG/1 ML VIAL IVPUSH PRN (09:07)
[2018-01-10] MEDS ORDERED: ACETAMINOPHEN 325 MG TABLET (FP) PO PRN (09:07)
[2018-01-10 09:33] VITALS: BP 143/64; PULSE 71
== END 2018-01-10 09:45 | disposition home or self-care (01) ==
LOC: FECT 05:40
PROVIDERS: ATTEND Psychiatry & Neurology Psychiatry
PROC: GZB4ZZZ Other Electroconvulsive Therapy (ICD-10-PCS; principal; 2018-01-10 08:15)
DX: F33.2 Major depressive disorder, recurrent severe without psychotic features (principal)
CPT/HCPCS: 36415; 84132; 90870; 94760